=== PATIENT | female | born 1955 | race Caucasian/White ===

== ENCOUNTER 2018-11-29 03:26 | Emergency (ER) | payer MEDICARE ==
[2018-11-29 03:54] LABS: #Basophils 0.1 thou/uL (0.0-0.2); #Lymphocytes 1.9 thou/uL (1.20-3.40); #Monocytes 0.6 thou/uL (0.11-0.59); #Neutrophils 8.8 thou/uL (1.40-6.50); %Basophils 0.6 % (0.0-1.0); %Eosinophils 0.2 % (0.0-10.0); %Lymphocytes 16.8 % (21.0-51.0); %Monocytes 5.1 % (0.0-10.0); %Neutrophils 77.2 % (42.0-75.0); Hemoglobin 12.8 g/dL (12.0-16.0); Mean Corpuscular HGB CONC 31.9 g/dL (32.0-36.0); Mean Corpuscular Volume 97.3 fL (78.0-98.0); Mean Platelet Volume 6.1 fL (7.4-10.4); Platelet Count 259 thou/uL (130-400); RBC Distribution Width 12.8 % (11.5-14.5); Red Blood Cell (RBC) Count 4.13 mill/uL (4.20-5.40); White Blood Cell (WBC) Count 11.4 thou/uL (4.8-10.8)
[2018-11-29 04:10] LABS: ALT (SGPT) 190 U/L (8-55); AST (SGOT) 246 U/L (5-34); Albumin 3.6 g/dL (3.4-4.8); Alkaline Phosphatase 129 U/L (40-150); Anion Gap 15 mmol/L (10-20); BUN (Urea Nitrogen) 9 mg/dL (9.8-20.1); Bilirubin, Total 0.6 mg/dL (0.2-1.2); CK (CPK) 81 U/L (29-168); Calc. Creatinine Clearance 0 mL/min (70-130); Calcium 8.2 mg/dL (7.8-10.44); Carbon Dioxide 27 mmol/L (23-31); Chloride 102 mmol/L (98-107); Estimated GFR-MDRD 79; Glucose 317 mg/dL (80-115); Protein, Total 6.6 g/dL (6.0-8.3); Sodium 141 mmol/L (136-145)
[2018-11-29 04:26] LABS: Potassium 2.8 mmol/L (3.5-5.1)
[2018-11-29 06:58] LABS: Base Excess (BEa) POC ABG 0.7 mmol/L (0 (+/- 2.5)); CO2 Tension (PaCO2) POC ABG 62.6 mmHg (35.0-48.0); Hemoglobin POC ABG 15.3 g/dL (12.0-17.0); O2 Saturation (calc) POC ABG 99.9 % (94-98); O2 Tension (PaO2) POC ABG 311.1 mmHg (83-108); pH (Arterial) 7.278 (7.35-7.45)
[2018-11-29 06:59] LABS: Calcium, Ionized 1.17 mmol/L (1.15-1.33)
--- NOTE | 2018-11-29 07:52 | RAD ---
EXAM: Single view of the chest HISTORY: Shortness of breath COMPARISON: None FINDINGS: Single view of the chest shows an enlarged cardiomediastinal silhouette. Hazy opacities in the lower lobes may represent pulmonary edema and/or pleural effusions. IMPRESSION: Cardiomegaly with bilateral pleural effusions and pulmonary edema
[2018-11-29] MEDS ORDERED: Magnesium Sulfate 2 GM/NS 0.9% 50 ML BAG ONE (08:40)
[2018-11-29] MEDS ORDERED: methylPREDNISolone Sod Succ/PF 125 MG/2 ML VIAL ONE (08:40)
[2018-11-29] MEDS ORDERED: Potassium Chloride 20 MEQ TAB ONE (08:40)
== END 2018-11-29 05:55 | disposition short-term general hospital (02) ==
LOC: MADERS 03:26
DX: J96.00 Acute respiratory failure, unspecified whether with hypoxia or hypercapnia (principal); J44.1 Chronic obstructive pulmonary disease with (acute) exacerbation; E11.9 Type 2 diabetes mellitus without complications; E78.5 Hyperlipidemia, unspecified; F32.9 Major depressive disorder, single episode, unspecified; F17.210 Nicotine dependence, cigarettes, uncomplicated; Z79.899 Other long term (current) drug therapy; Z79.82 Long term (current) use of aspirin; Z79.84 Long term (current) use of oral hypoglycemic drugs
CPT/HCPCS: 36415; 71045; 80053; 82330; 82550; 82803; 83880; 84484; 85025; 93005; 94660; 94760; 96365; 96366; 96375; J2930; J3475